=== PATIENT | male | born 1980 ===

== ENCOUNTER 2021-04-15 11:23 | Emergency (ER) | payer MEDICAID ==
[2021-04-15 12:13] VITALS: BP 142/96
--- NOTE | 2021-04-15 12:34 | Emergency Department Report ---
ED Fall HPI - General Chief Complaint: Fall Stated Complaint: WORK RELATED INJURY Time Seen by Provider: 04/15/21 12:19 Source: patient Mode of arrival: Ambulatory - History of Present Illness Initial Comments: CC: Hurt on the job HPI: This is a healthy 40 yo male without significant medical history who presents with work-related injury. He has pain located at the head, neck, back, right elbow, right knee, right ankle. 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 The equipment kept jerking. He was thrown off of the equipment due to malfunction. The machine jerked thrown him to the right. On his right side. He was evaluated at [facility] urgent care [place]. He received x-rays of the right elbow and right knee. He is concerned that he may not have received a full evaluation. Mild symptoms. He was given steroid pack and a different medication. He is not taken his medication as of yet. MD Complaint: fall, other (Fall off equipment at work, patient was driving heavy equipment, power flores) -: Sudden, days(s) (Yesterday) Fall From: standing (Standing on heavy equipment) Place Fall Occurred: work Loss of Consciousness: none Prolonged Down Time?: no Symptoms Prior to Fall: none Location: head, neck, back, other (Right ankle elbow knee) Severity: mild Context: other (Fell off heavy equipment) - Related Data Allergies Allergy/AdvReac Type Severity Reaction Status Date / Time No Known Allergies Allergy Unverified 04/15/21 12:06 ED Review of Systems ROS: Stated complaint: WORK RELATED INJURY Other details as noted in HPI Constitutional: denies: fever Respiratory: denies: cough, shortness of breath Cardiovascular: denies: chest pain Gastrointestinal: denies: abdominal pain, nausea, vomiting Musculoskeletal: back pain Neurological: headache. denies: numbness, paresthesias ED Past Medical Hx - Past Medical History Previous Medical History?: No - Surgical History Past Surgical History?: No - Social History Substance Use Type: Alcohol ED Physical Exam - General Limitations: No Limitations General appearance: alert, in no apparent distress, other (Steady normal gait GCS 15 appears well and comfortable) - Head Head exam: Present: atraumatic, normocephalic - Eye Eye exam: Present: normal appearance - ENT ENT exam: Present: mucous membranes moist - Neck Neck exam: Present: normal inspection, full ROM - Respiratory Respiratory exam: Present: normal lung sounds bilaterally. Absent: respiratory distress, wheezes, rales, rhonchi - Cardiovascular Cardiovascular Exam: Present: regular rate, normal rhythm, normal heart sounds. Absent: systolic murmur, diastolic murmur, rubs, gallop - GI/Abdominal GI/Abdominal exam: Present: soft, normal bowel sounds. Absent: distended, tenderness, guarding, rebound - Rectal Rectal exam: Present: deferred - Extremities Exam Extremities exam: Present: normal inspection - Expanded Upper Extremity Exam Right Shoulder Exam: Present: normal inspection, full ROM. Absent: tenderness, swelling Upper Arm exam: Present: normal inspection, full ROM. Absent: tenderness, swelling Elbow exam: Present: normal inspection, full ROM. Absent: tenderness, swelling Forearm Wrist exam: Present: normal inspection, full ROM. Absent: tenderness, swelling Hand Wrist exam: Present: normal inspection, full ROM - Expanded Lower Extremity Exam Right Upper Leg exam: Present: normal inspection, full ROM Knee exam: Present: normal inspection, tenderness Ankle exam: Present: normal inspection, full ROM. Absent: tenderness, swelling, abrasion, laceration, deformity - Back Exam Back exam: Present: normal inspection - Neurological Exam Neurological exam: Present: alert, oriented X3 - Psychiatric Psychiatric exam: Present: normal affect, normal mood - Skin Skin exam: Present: warm, dry, intact, normal color. Absent: rash ED Course Vital Signs 04/15/21 12:12 Temperature 98.7 F Pulse Rate 71 Respiratory 18 Rate Blood Pressure 142/96 [Right] O2 Sat by Pulse 98 Oximetry ED Medical Decision Making - Medical Decision Making This is a healthy 40-year-old gentleman who presents with mild work-related injuries. No evidence of fracture dislocation. Patient has normal exam. Recommended evaluation by orthopedic surgeon. Recommended continuing therapy initiated at urgent care. Critical care attestation.: If time is entered above; I have spent that time in minutes in the direct care of this critically ill patient, excluding procedure time. ED Disposition Clinical Impression: Work related injury, Closed head injury, Neck strain, Back strain, Strain of elbow, right, Strain of right knee, Muscle strain of right ankle Disposition: 01 HOME / SELF CARE / HOMELESS Is pt being admited?: No Does the pt Need Aspirin: No Condition: Stable Instructions: Muscle Strain, [id number] Referrals: BABAK MALDONADO MD [Staff Physician] - 3-5 Days Forms: Work/School Release Form(ED)
== END 2021-04-15 12:45 | disposition home or self-care (01) ==
LOC: ED 11:23
DX: S16.1XXA Strain of muscle, fascia and tendon at neck level, initial encounter (principal); S39.012A Strain of muscle, fascia and tendon of lower back, initial encounter; S46.911A Strain of unspecified muscle, fascia and tendon at shoulder and upper arm level, right arm, initial encounter; S86.911A Strain of unspecified muscle(s) and tendon(s) at lower leg level, right leg, initial encounter; S96.911A Strain of unspecified muscle and tendon at ankle and foot level, right foot, initial encounter; S09.90XA Unspecified injury of head, initial encounter; X58.XXXA Exposure to other specified factors, initial encounter; Y93.89 Activity, other specified; Y92.89 Other specified places as the place of occurrence of the external cause; Y99.0 Civilian activity done for income or pay
CPT/HCPCS: 99281